=== PATIENT | female | born 1960 | race Caucasian/White ===

== ENCOUNTER 2018-01-04 15:17 | Emergency (ER) | payer OTHER, SELFPAY ==
[2018-01-04 15:21] VITALS: BP 215/119; PULSE 88; RESP 20; TEMP 36.7; O2SAT 99
--- NOTE | 2018-01-04 16:19 | DI.RAD.S_ITS ---
PROCEDURE: XR CHEST 1V INDICATIONS: dizziness TECHNIQUE: One view of the chest was acquired. COMPARISON: Located Within [facility], , CHEST 2 VIEW, 07/03/2017, 17:24. FINDINGS: Surgical changes and devices: None. Lungs and pleura: No pleural effusions or pneumothorax. Lungs are clear. Mediastinum: Mediastinal contours appear normal. Heart size is normal. Bones and chest wall: No suspicious bony lesions. Overlying soft tissues appear unremarkable. IMPRESSION: No acute cardiopulmonary pathology. Dictated by: Poncho Otero M.D. on 01/04/2018 at 16:37 Approved by: Poncho Otero M.D. on 01/04/2018 at 16:37
[2018-01-04 16:56] VITALS: BP 163/88; PULSE 78; RESP 10; O2SAT 98
[2018-01-04 16:57] LABS: Add Manual Diff / Slide Review NO; Basophils Percent Auto 1.3 % (0-2); Hematocrit 43.5 % (36-46); Hemoglobin 14.8 g/dL (12.0-16.0); Mean Corpuscular Hemoglobin 30.5 PG (26-34); Mean Corpuscular Volume 89.7 fL (80-100); Monocytes Percent Auto 8.9 % (3-14); Neutrophils Absolute Auto 3600 /uL (3000-5900); Neutrophils Percent Auto 56.8 % (50-75); Platelet Count 209 X10^3/uL (150-400); Red Blood Cell Count 4.85 X10^6/uL (4.0-5.2); White Blood Cell Count 6.4 X10^3/uL (4.5-11.0)
[2018-01-04 17:06] LABS: Blood Urea Nitrogen 12 mg/dL (7-17); Calcium 9.5 mg/dL (8.4-10.2); Carbon Dioxide 28 mmol/L (22-32); Chloride 103 mmol/L (98-107); Estimated Glomerular Filt Rate > 60.0 mL/min (>60); Glucose 96 mg/dL (70-100); HEMOLYSIS 39 (0-50); Sodium 141 mmol/L (137-145)
[2018-01-04 17:18] VITALS: BP 160/90; PULSE 78
[2018-01-04] MEDS: LOSARTAN 50 MG TABLET PO (17:18)
[2018-01-04] MEDS: SODIUM CHLORIDE 0.9% 1,000 ML 1000 ML IV (17:18)
[2018-01-04 17:19] LABS: Troponin I < 0.012 ng/mL (0.01-0.034)
[2018-01-04] MEDS: MECLIZINE HCL 12.5 MG TABLET 50 MG PO (17:19)
--- NOTE | 2018-01-04 17:57 | ED.DIZZY ---
HPI - Dizziness General Chief Complaint: Dizziness Stated Complaint: NAUSEA,DIZZY,ELEVATED BP Time Seen by Provider: 01/04/18 15:38 History of Present Illness HPI Narrative: HPI 57-year-old obese female with history of unmedicated vertigo presents for evaluation of poorly characterized sensation of movement while stationary, symptoms have been present four 4+ days, with gradually improving before worsening this morning. Patient notes her vertiginous symptoms are slightly worsened by rapid head movements, no clear identifying relieving factors. * Onset (acute prolonged episode, recurrent positional episodes, recurrent non-positional episodes): gradual onset mild and prolonged, largely non-positional. * Recent medication changes: None * Hearing changes: None * Neck pain, unusual neck trauma: Denies trauma, working with head held in an usual position for an extended period of time, chiropractic manipulation, or lateral neck pain. * Changes in vision: denies blurring, diplopia, graying of vision or further acute changes. M/S/F/SocHx notable for: please see HPI; remainder reviewed with patient and in chart. ROS: Negative constitutional, eye, cardiovascular, pulmonary, GI, , MSK, skin, neurologic, psychiatric, endocrine unless noted in the HPI. Exam Gen: pleasant, well appearing, resting comfortably in no apparent discomfort. HEENT: Normocephalic, atraumatic, TMs clear bilaterally without effusion, bulging, or erythema. Preauricular skin, pinna, and external canal without visible lesions bilaterally. 2+ temporal pulses bilaterally without palpable abnormalities or tenderness palpation. Resp: Clear to auscultation bilaterally Card: Regular rate and rhythm with no murmurs rubs or gallops. GI: Nontender, nondistended : Deferred MSK: No visible deformities, strength and tone WNL. Skin: Normal color with no visible lesions. Neuro: Gen. AO x 3, no facial asymmetry, no gaze preference, no slurring of speech. Cranial nerves. II-III: pupils equal and reactive to afferent and efferent stimuli (4->2mm bilaterally); III, IV, : EOMI, V1-V3: sensation to touch bilaterally intact; VII: no facial asymmetry (frown / smile); VIII: head impact testing without corrective saccades when the head is rotated to either side, hearing grossly intact bilaterally; X: phonation intact, XI: trapezius 5/5 bilaterally, XII: tongue midline. Brainstem: horizontal eye movements with smooth conjugate pursuit and without nystagmus, left eccentric gaze without nystagmus, right eccentric gaze without nystagmus. Alternate cover test without skew. Cerebellar no pronator drift, [id number] testing without dysmetria, . 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 Lawrence-Hallpike: without provoked nystagmus bilaterally. Romberg: Negative Gait: Normal gait without imbalance. Psych: Mood and affect appropriate. Labs / Imaging (pertinent): WBC 6.4, HB 14.8, sodium 141, potassium 4.0, troponin <0.012 CXR: no acute cardiopulmonary abnormality EKG: SR at [address]-segment elevations, nonspecific ST segment depressions, T-wave inversions or new LBBB. CO interval 152 msec, QTc 409 msec, no delta waves, epsilon waves, coved or saddle ST-segment changes in leads V1-3, preseptal or inferior lead Q-waves, biphasic P-waves, or T-wave inversions; no LVH. MDM Previous chart, nursing note, and vitals reviewed. A: 57-year-old obese female with history of unmedicated vertigo presents for evaluation of poorly characterized sensation of movement while stationary, symptoms have been present four 4+ days, with gradually improving before worsening this morning. DDx: acute vestibular syndrome (vestibulitis, labrynthitis, BPPV, Chiari malformation, cerebellar tumors, MS, anemia, cardiac, Meniere?s disease, medications, migraine associated vertigo, posterior circulation ischemia (posterior fossa CVA, vertebral artery stenosis or dissection, vertibrobasilar artery TIA, stenosis, or dissection). Evaluation: [patient with very mild symptoms (no objective findings on exam), improved with meclizine, blood pressure with losartan. CBC, BMP, troponin WNL, EKG without evidence of arrhythmia or ischemia, chest x-ray unremarkable. Discussion was had with the patient regarding imaging, the low utility of noncontrast CT versus watchful waiting and follow up with PCP for repeat evaluation in consideration of MRI is appropriate. Patient elected to pursue repeat evaluation with MRI as needed on an outpatient basis. Given the overall symptom constellation of a onset over several hours followed by a trend of generally gradual resolution suspect a vestibulitis, however this is tentative at the present time. Alternatively, the patient may have side effects secondary to hypertension, however the patient has been taking her blood pressure daily throughout her symptom course and notice her systolic blood pressure to be in the 130-140 range, as such this is considered unlikely. Disposition: discharge with RX for meclizine and losartan, follow up with PCP for repeat evaluation 1-2 days. Return to care precautions provided. Impression: HTN, vertiginous symptoms (please reference below for remainder of encounter information) Related Data Home Medications Medication Instructions Recorded Confirmed multivitamin [Multiple Vitamins] 1 tab PO QDAY #0 05/31/17 01/04/18 Allergies Allergy/AdvReac Type Severity Reaction Status Date / Time No Known Drug Allergies Allergy Verified 01/04/18 15:21 [facility] Social History Smoking Status: Former smoker Exam Initial Vital Signs Initial Vital Signs: Vital Signs Temperature 98.0 F 01/04/18 15:21 Pulse Rate 88 01/04/18 15:21 Respiratory Rate 20 01/04/18 15:21 Blood Pressure 215/119 H 01/04/18 15:21 Pulse Oximetry 99 01/04/18 15:21 Course Orders Ordered: ED Orders 01/04/18 15:26 EKG-12 Lead Stat 01/04/18 16:19 XR chest 1V Stat 01/04/18 16:40 Basic Metabolic Panel Stat Complete Blood Count AUTO DIFF Stat Troponin I Stat Discontinued Medications Sodium Chloride (Normal Saline 0.9%) 1,000 mls @ 1,000 mls/hr IV BOLUS ONE Stop: 01/04/18 17:23 Last Admin: 01/04/18 17:18 Dose: 1,000 mls/hr Losartan Potassium (Cozaar) 50 mg PO NOW ONE Stop: 01/04/18 16:20 Last Admin: 01/04/18 17:18 Dose: 50 mg Meclizine HCl (Antivert) 50 mg PO NOW ONE Stop: 01/04/18 16:25 Last Admin: 01/04/18 17:19 Dose: 50 mg Vital Signs - 8 hr 01/04/18 15:21 01/04/18 16:56 01/04/18 17:18 Temperature 98.0 F Pulse Rate 88 78 78 Respiratory Rate 20 10 L Blood Pressure 215/119 H 160/90 H Blood Pressure [Left Arm] 163/88 H Pulse Oximetry 99 98 MDM - Dizziness Lab Data Result diagrams: 01/04/18 16:40 01/04/18 16:40 Lab Results 01/04/18 01/04/18 Range/Units 16:40 16:40 WBC 6.4 (4.5-11.0) X10^3/uL RBC 4.85 (4.0-5.2) X10^6/uL Hgb 14.8 (12.0-16.0) g/dL Hct 43.5 (36-46) % MCV 89.7 (80-100) fL MCH 30.5 (26-34) PG MCHC 34.0 (30-36) % RDW 15.0 H (11.6-14.8) % Plt Count 209 (150-400) X10^3/uL Neut % (Auto) 56.8 (50-75) % Lymph % (Auto) 31.0 (25-40) % [place] % (Auto) 8.9 (3-14) % Eos % (Auto) 2.0 (2-4) % Baso % (Auto) 1.3 (0-2) % Neut # (Auto) 3600 (9217-8843) /uL Sodium 141 (137-145) mmol/L Potassium 4.0 (3.4-5.1) mmol/L Chloride 103 (98-107) mmol/L Carbon Dioxide 28 (22-32) mmol/L BUN 12 (7-17) mg/dL Creatinine 0.60 (0.52-1.04) mg/dL Estimated GFR > 60.0 (>60) mL/min BUN/Creatinine Ratio 20.0 (6-22) Glucose 96 (70-100) mg/dL Calcium 9.5 (8.4-10.2) mg/dL Troponin I < 0.012 (0.01-0.034) ng/mL Discharge Plan Departure Prescriptions: No Action multivitamin [Multiple Vitamins] 1 EACH tablet 1 tab PO QDAY Qty: 0 RF: 0
[2018-01-04 18:10] VITALS: BP 184/85; PULSE 75; RESP 11; O2SAT 99
== END 2018-01-04 18:38 | disposition home or self-care (01) ==
PROVIDERS: Emergency Provider Emergency Medicine; Family Provider Family Medicine; PCP Family Medicine
DX: I10 Essential (primary) hypertension (principal); R42 Dizziness and giddiness
CPT/HCPCS: 36591; 71045; 80048; 84484; 85025; 93005; 93010; 96360; 99283; 99285